=== PATIENT | female | born 1950 | race Caucasian/White ===

== ENCOUNTER → 2024-09-07 13:04 | Outpatient (REF) | payer OTHER, SELFPAY | LOC: WDC 13:04 | PROVIDERS: ATTENDING PHYSICIAN Internal Medicine; FAMILY PHYSICIAN Internal Medicine | DX: M81.0 Age-related osteoporosis without current pathological fracture (principal); Z12.31 Encounter for screening mammogram for malignant neoplasm of breast | CPT/HCPCS: 77063; 77067; 77080 ==

== ENCOUNTER 2024-10-28 15:13 | Observation (INO) | payer OTHER, SELFPAY ==
[2024-10-28] VITALS (11 sets, daily range): BP systolic 96–156; BP diastolic 49–80; BMI 27.2; BMI 27.0
--- NOTE | 2024-10-28 12:55 | EDRN ---
the pt was brought back from triage to ED BEd #11, a stroke alert was called and Dr. Nicholas and Dr. Schwarz were brought to the pts bedside
[2024-10-28 12:57] LABS: Glucose - Point of Care 101 mg/dl (70-99)
[2024-10-28 13:02] LABS: Glucose - Point of Care 94 mg/dl (70-99)
--- NOTE | 2024-10-28 13:04 | ED.GENMED ---
History of Present Illness
General
Chief Complaint: Change in Mental Status
Source: patient
Time Seen by Provider: 10/28/24 13:03
History of Present Illness
History of Present Illness:
74-year-old female presents to the emergency room complaining of confusion. Patient noted to be confused by her at around 9 AM. was asleep and the patient woke up so he cannot really identify a time when she was normal other than
last night. Evidently the patient's daughter spoke to her today and also felt like she was confused. Patient denies headache. She denies any nausea or vomiting.
Past History
Past History
ED Past Medical History: Other (Graves' disease)
ED Past Surgical History: Gynecological (Tubal ligation) and Other (Resection of lipoma, cosmetic surgery)
Social History
Tobacco: Non-smoker
Alcohol: Occasional
Drug: None
Phy Exam
Physical Exam
Physical Exam:
General: Awake, Alert, Oriented X3. No acute distress.
Vitals: unremarkable
Head: Atraumatic
Eyes: Pupils equal, EOMI
Throat: Airway intact, no exudates
Neck: Trachea midline
Lungs: Clear and equal b/l
Heart: Regular rate, no murmurs
Abd: Soft, Nontender, No pulsatile mass
Neuro: Cranial nerves intact, muscle strength equal bilaterally, cerebellar exam normal
Skin: Warm, dry, no rash
Extremities: pulses equal b/l, no edema
Course
Orders/Labs/Results
Orders:
Orders
10/28/24 12:32
Electrocardiogram (*1) Urgent
Reason for Study: Other
Other Reason for Exam: Possible Stroke
Bedside Glucose- Treatment ONCE
10/28/24 12:33
CT HEAD STROKE ALERT W/o Cont Urgent
Reason For Exam: confusion
EKG- Treatment ONCE
10/28/24 13:05
CT HEAD/NECK ANG STROKE ALERT Urgent
Comment:
Reason For Exam: Stenosis
10/28/24 13:17
C-Reactive Protein Urgent
Comment: ADD ON
Cardiovascular Evaluation Urgent
Complete Blood Count/With Diff Urgent
Comprehensive Metabolic Panel Urgent
Erythrocyte Sed Rate Urgent
Comment: ADD ON
Ferritin Urgent
Comment: ADD ON
Folate Urgent
Comment: ADD ON
Glycohemoglobin (HgbA1c) Urgent
PTT Urgent
Prothrombin Time Urgent
TSH Reflex To Free T4 Urgent
Comment: ADD ON
Troponin I Urgent
Vitamin B12 Urgent
Comment: ADD ON
10/28/24 13:20
Aspirin Low Dose EC [Aspir Low (Enteric Coated)] 81 mg PO NOW STA
10/28/24 13:21
Add On- LAB Routine
Comments:: Please add to today's labs or draw as routine
Tests Added?: TSH reflex, Ferritin, Folate, Vit. B12, ESR, CRP, lipid profile
10/28/24 13:23
Patient Education As Directed
Type: Stroke education packet
Comment: provide to patient and family
10/28/24 13:57
COVID-19 Antigen Urgent
Source: Nasal Swab
Urinalysis Reflex To Culture Urgent
Date Specimen was Collected: 10/28/24
Time Specimen was Collected: 13:22
Urine Microscopic Reflex Cult Urgent
Influenza A+B Rapid Molecular Urgent
KRISTIN Source: Nasal Swab
Specimen Description:
10/28/24 14:53
Admit/Transfer Patient As Directed
Co-Sign Provider:
Level of Care: Observation services
Assign to:: Telemetry
Physician / Group: scott
Diagnosis: tia
Reason for Telemetry: CVA/TIA
Date to Stop Telemetry: 10/31/24
Time to Stop Telemetry: 11:00
Code Status As Directed
Resuscitation Status: Do not resuscitate
Reached after discussion with pt or family/Healthcare POA: Yes
DNR Bracelet Application ONCE
PRN Pain Medication Management As Directed
May give lesser potent ordered pain med per pt: Yes
preference::
Protocol:: Medication orders for pain may be administered in a
manner that supports deferring to patient preference
when the pt is:
- Requesting an ordered lesser potent pain medication.
Least to most potent pain medications are defined
as: acetaminophen < NSAID < tramadol < opioids
(morphine, oxycodone, hydromorphone).
- Requesting a lesser dose of the same medication IF
ORDERED.
- Requesting a less intrusive route of administration
if both routes are prescribed by the provider (PO <
IV).
10/28/24 17:16
Activity As Directed
Activity Level: As Tolerated
NIH Stroke Scale As Directed
Directions: Per protocol
Comment: every shift and with any change in condition or mental status
Neurological Checks As Directed
Frequency: q4h
Additional Instructions:: q4h x 24h upon admission to the floor, then qshift & with any change in condition
and mental status
Pneumatic Compression Sleeves As Directed
Type: Knee high
Vital Signs As Directed
Frequency: Per unit guidelines
DX Deep Vein Thrombosis Video Routine
10/29/24 05:44
Cardiovascular Evaluation IN AM
10/29/24 08:00
Aspirin Low Dose EC [Aspir Low (Enteric Coated)] 81 mg PO DAILY
10/31/24 11:00
DC Protocol for Telemetry ONCE
Abnormal Lab Results
10/28/24 10/28/24 10/28/24
12:55 13:17 13:57
MCH 31.5 H pg
(27.0-31.0)
Total Cholesterol 309 H mg/dl
(50-199)
Folate > 20.0 H ng/ml
(2.76-20)
Leukocyte Esterase Rfl Trace A
(Negative)
POC Glucose 101 H mg/dl
(70-99)
10/28/24 13:17
10/28/24 13:17
Vital Signs
Initial and Last Documented VS:
Initial Vital Signs
Temp Pulse Resp BP Pulse Ox
97.6 F 68 18 134/73 99
10/28/24 12:46 10/28/24 12:46 10/28/24 12:46 10/28/24 12:46 10/28/24 12:46
Last Documented Vital Signs
Temp Pulse Resp BP Pulse Ox
98.8 F 72 18 138/77 98
10/29/24 16:31 10/29/24 16:31 10/29/24 16:31 10/29/24 16:31 10/29/24 16:31
MDM/Problems Addressed
Differential Diagnosis Includes:
CVA, electrolyte abnormality, urinary tract infection, other infectious process
MDM/Problems Addressed:
Patient presents primary with confusion. Neurologic exam reveals confusion but no focal neurologic deficits. CT and CTA are unremarkable. Urinalysis not consistent with UTI. Remainder of her labs do not show any clinically significant
abnormalities. However patient remains confused significantly so per family. Will require hospitalization for careful monitoring and further testing.
Chronic conditions affecting care: HTN
*Pulse Oximetry
Patient hypoxic: no
*EKG
Interpreted by ED Provider?: Yes
Heart Rate: 65
Rate: normal
Rhythm: sinus
[place]: normal axis
Interval: normal interval
Ischemia: no ischemia
*Scientist/Engineer Interpretation
Rate: normal
Interpretation: normal
Heart Rate: 65
Rhythm: sinus
*Critical Care Note
Total Time (30-74mins, 75-104mins- exclusive of procedures): Not Applicable
ED Attending Note
-
Portions of this chart may have been created with voice recognition software.� Occasional wrong word or��sound alike� substitutions may have occurred due to the inherent limitations of voice recognition software.
Discharge Plan
Departure
Patient Disposition: Admit
Date of Disposition: 10/28/24
Time of Disposition: 14:37
Admit to: Telemetry
Presentation/result/management discussed w/ accepting MD/DO: Hospitalist
Condition: Fair
Discharge Problem:
Altered mental status
Interventions
Interventions:
*Risk Screen - Suicide Last Done: 10/28/24 12:46
*General Assessment Last Done: 10/28/24 12:46
*Neglect/Abuse Screening Last Done: 10/28/24 12:54
ED- Fall Risk Assessment Last Done: 10/28/24 12:54
*ED COVID-19 Vaccine History Last Done: 10/28/24 12:46
*Nursing Disposition Last Done: 10/28/24 16:01
ED- Pulmonary Assessment Last Done: 10/28/24 12:54
ED-Psychological Assessment Last Done: 10/28/24 12:54
ED- Neurological Assessment Last Done: 10/28/24 12:54
ED- Cardiac Assessment Last Done: 10/28/24 12:54
ED Swallowing Screen Last Done: 10/28/24 12:54
Discharge Date and Time
Discharge Date/Time: 10/28/24 17:02
--- NOTE | 2024-10-28 13:09 | CON.NEURO ---
Neuro Assessment/Plan
Assessment
Acute onset of worsening cognition and subsequent left upper extremity sensory change followed by bilateral lower extremity tingling
Most likely subacute worsening of the patient's known dementia which was presumed to be due in part due to vitamin B12 deficiency. The patient's sensory changes which are not associated with motor changes, are most likely due to the patient's
generalized anxiety disorder.
The patient was not a candidate for either tenecteplase or intra-arterial thrombectomy due to NIH stroke scale less than [address] of head and CTA head and neck, done
Eventual outpatient MRI of brain
Check lipid profile
Goal of normotension
Initiate aspirin 81 mg daily based on current symptomatology
Check blood work for potential metabolic abnormalities
Provide medical educational materials
Will follow pending results
Consultation
Order
Date of Consultation: 10/28/24
Requesting Provider: Emergency department physician
Reason for Consult: Stroke alert
Subjective/Objective
Subjective Data
Date of Service: October 28, 2024
Right handed
Patient was previously evaluated by my former esteemed colleague, last in 2021. The patient was noncompliant with follow-up after that time. The patient reportedly has been experiencing cognitive impairment since 2020 involving short-term memory
but not long-term memory. The patient also was described as having increased anxiety and difficulty with sleep. According to medical records, the patient was previously evaluated for a spinal cord abnormality in 2008 and not found to have multiple
sclerosis. The patient had been falling immediately prior to evaluation in 2021. MRI of the brain was performed in 2021 which showed small vessel ischemic disease and no other changes. The patient did not undergo neuropsychological testing which
was recommended during that evaluation.
The patient returned to this hospital's emergency department today with report of increasing confusion and left arm sensory change.
At 0915 hrs. today, the patient had a discussion with family members about having a gathering later in the day. By 1030 hrs., the patient was unable to recall the prior phone discussion. Her left arm sensory change began at 1215 hrs. and has
persisted. The patient suggest that she has had a prior episode of confusion similar to this previously. The left arm sensory change has been followed by bilateral foot sensory change in the form of tingling which began during this interview.
No known modifying factors. No other associated symptoms.
Objective Data
Vital Signs
Temp Pulse Resp BP Pulse Ox
36.4 C 68 18 134/73 99
10/28/24 12:46 10/28/24 12:46 10/28/24 12:46 10/28/24 12:46 10/28/24 12:46
Patient Allergies
risedronate sodium [From Actonel] Allergy (Verified 10/28/24 12:51)
'flu symptoms'
Latex Allergy (Uncoded 10/28/24 12:51)
blisters
CVA Assessment
Onset of Stroke Symptoms
Onset of symptoms known: Yes
Date of onset of symptoms: 10/28/24
Time of onset of symptoms: 10:30
Time pt last seen normal is known: Yes
Date last time pt seen normal: 10/28/24
Time last time pt seen normal: 10:30
NIH Stroke Score
Level of Consciousness: 0 - Alert
LOC Questions: 0-Answers both correctly
LOC Commands: 0-Performs both correctly
Best Horizontal Gaze: 0-Normal
Visual Kunz: 0=Normal, no visual loss
Facial Palsy: 0=Normal, symmetrical
Motor - Right Arm: 0=No drift 10 seconds
Motor - Left Arm: 0=No drift 10 seconds
Motor - Right Le-No drift 5 seconds
Motor - Left Le-No drift 5 seconds
Limb Ataxia: 0-Absent
Sensation: 0-Normal
Best Language: 0-No aphasia
Dysarthria: 0-Normal
Extinction and Inattention: 0-No abnormality
Total Score:: 0
Tenecteplase Contraindications
Inclusion and Exclusion criteria reviewed: Yes
IAT Contraindications: NIHSS < 6
Review of Systems
-
Unable to obtain full review of systems at this time due to: Dementia
History Source: Patient
All other systems: Reviewed and negative
EENT: Negative Decreased Vision
Neuro: Negative Dizzy or Headache
Physical Exam
-
General: No Apparent Distress and Appears Stated Age
Eyes: OU Absent Papilledema, Round OU, [place] Conjunctivae and No Ptosis
HEENT: Anicteric and Moist Mucous Membranes
Neck: Full Range of Motion
Respiratory: No Dyspnea
Cardiac: No JVD
GI: Non-distended
Skin: Unremarkable
Extremities: No Clubbing, No Cyanosis and No Edema
Psych: Negative Intact Judgement/Insight
Extended Neurological Exam
Mood & Affect: Mood Unremarkable and Affect Unremarkable
Attention Span & Concentration: Awake, Alert, Interactive and Mild Difficulty with 2 Step Request
Memory: Able to Recall (Month and year as well as holiday order) and Unable to Recall Personal History
Tremor: Hand Tremor Absent and Head Tremor Absent
Speech: Quality Unremarkable and Quantity Unremarkable
Cranial Nerve II: Left Eye: Pupillary Reactivity Unremarkable, Pupillary Size Unremarkable and Visual Kunz Intact
Cranial Nerve II: Right Eye: Pupillary Reactivity Unremarkable, Pupillary Size Unremarkable and Visual Kunz Intact
Cranial Nerves III, IV, : Extraocular Movement: Extraocular Movement Full in all Directions
Cranial Nerve VII: Facial Symmetry: Normal Facial Symmetry
Cranial Nerve VIII: Hearing: Unremarkable Hearing to Normal Conversational Volume
Cranial Nerves IX, X: Palate Movement: Palate Elevation Symmetric
Cranial Nerve XI: Shoulder Shrug: Unremarkable
Cranial Nerve XII: Tongue Protusion: Midline
Muscle Strength, Overall: Full Throughout
Muscle Bulk & Tone: Bulk Unremarkable and Tone Unremarkable
Pronator Drift: No Drift in Upper Extremities and No Drift in Lower Extremities
Deep Tendon Reflexes: Unremarkable Throughout
Touch Sensation: Unremarkable
Coordination: [id number] Testing Unremarkable
Babinski Sign: Absent Bilaterally
Gait & Station: Up from Seated Without Problem
Data Reviewed
-
CT-A: Report Reviewed and Image Reviewed
CT Head: Report Reviewed and Image Reviewed
MRI Head: Ordered
Labs: Ordered and Report Reviewed
Reviewed with: Physician, Nurse, Patient and Family
Old Records: Summarized
Medications
-
Home Medications
�Medication �Instructions �Recorded
levothyroxine 88 mcg tablet 88 mcg PO DAILY Thyroid 12/24/16
Fancy Pants Gummy Vitamin 4 ea PO DAILY 02/17/22
Vitamin A 1 tab PO DAILY 02/17/22
acetaminophen 325 mg tablet 650 mg (2 x 325 mg) PO Q4HPRN PRN 02/17/22
mild pain #1 tab
bupropion HCl 150 mg 24 hr tablet, 150 mg PO DAILY Depression 02/17/22
extended release
cholecalciferol (vitamin D3) 50 5,000 units PO DAILY 02/17/22
mcg (2,000 unit) tablet
ibuprofen 200 mg tablet 400 - 600 mg (2 - 3 x 200 mg) PO 02/17/22
Q6HPRN PRN moderate pain #1 tab
oxycodone 5 mg tablet 5 mg PO Q4HPRN PRN 02/17/22
breakthrough/severe pain #10 tabs
vitamin B complex 1 tab PO DAILY 02/17/22
Past History
Past History
ED Past Medical History: Hypothyroidism and Other (Graves' disease, dementia, B12 deficiency, osteoporosis, bilateral ptosis)
ED Past Surgical History: Gynecological (Tubal ligation), Orthopedic (L metatarsal fracture) and Other (Resection of lipoma, cosmetic surgery, carpal tunnel surgery)
Social History
Tobacco: Non-smoker
Alcohol: Occasional
Drug: None
Personal:
Living: with family
Family History
Family History: Other (reviewed and non-contributory)
[2024-10-28 13:27] LABS: % Basophils 0.6 % (0-2); % Eosinophils 2.7 % (0-6); % Immature Granulocytes 0.3 % (0-0.5); % Lymphocytes 27.8 % (20.5-51.1); % Monocytes 6.7 % (1.7-9.3); % Neutrophils 61.9 % (42.2-75.2); Absolute Eosinophils 0.2 10^3/uL (0-0.7); Absolute Lymphocytes 1.8 10^3/uL (1.2-3.4); Absolute Monocytes 0.4 10^3/uL (0.1-0.6); Absolute Neutrophils 3.9 10^3/uL (1.4-6.5); Hemoglobin 14.8 g/dL (12.0-16.0); Mean Corp Hgb Conc. 33.6 g/dL (33.0-37.0); Mean Corpuscular Hgb 31.5 pg (27.0-31.0); Mean Corpuscular Volume 93.6 fL (81.0-99.0); Nucleated Red Blood Cells % 0 %; Platelet Count 217 10^3/uL (130-400); Red Cell Dist. Width 14.1 % (11.5-14.5); White Blood Cell Count 6.3 10^3/uL (4.8-10.8)
[2024-10-28 13:41] LABS: ALT (SGPT) 33 U/L (0-35); AST (SGOT) 35 U/L (14-36); Albumin 4.9 g/dl (3.5-5.0); Alkaline Phosphatase 77 U/L (38-126); Blood Urea Nitrogen 15 mg/dl (7-17); Calcium 9.4 mg/dl (8.4-10.2); Carbon Dioxide 28 mmol/L (22-30); Chloride 102 mmol/L (98-107); Estimated Creatinine Clearance 63 ml/min; Glucose 97 mg/dl (70-99); Potassium 4.5 mmol/L (3.5-5.1); Sodium 138 mmol/L (135-145); Total Bilirubin 0.6 mg/dl (0.2-1.3); Total Cholesterol 309 mg/dl (50-199); Total Protein 7.3 g/dl (6.3-8.2); Triglyceride 81 mg/dl (10-149); Very Low Density Lipoprotein 16 mg/dl (0-30); eGFR > 60.00
[2024-10-28 13:48] LABS: HDL Cholesterol 131 mg/dl; LDL Cholesterol, Calculated 162 mg/dl
[2024-10-28 13:51] LABS: Troponin I < 0.012 ng/ml
[2024-10-28 13:55] LABS: C-Reactive Protein < 5.00 mg/L (0.0-10.00)
[2024-10-28 14:09] LABS: APTT 27.4 Sec (23.4-35.0); INR 0.84
[2024-10-28 14:18] LABS: Urine Albumin Negative (Neg - Trace); Urine Bilirubin Negative (Negative); Urine Character Clear (Clear); Urine Color Yellow; Urine Glucose Negative (Negative); Urine Ketone Negative (Negative); Urine Leukocyte Trace (Negative); Urine Nitrite Negative (Negative); Urine Occult Blood Negative (Negative); Urine Specific Gravity 1.005 (<1.030); Urine Urobilinogen Negative (Neg - 1+)
[2024-10-28 14:24] LABS: TSH Reflex To Free T4 3.94 uIU/ml (0.47-4.68)
[2024-10-28 14:24] LABS: COVID-19 Antigen Negative (Negative)
[2024-10-28 14:25] LABS: Erythrocyte Sed Rate 9 mm/hour (0-20)
[2024-10-28] MEDS: ASPIR LOW (ENTERIC COATED) 81 MG PO (14:26)
[2024-10-28 14:28] LABS: Ferritin 47.9 ng/ml (11.1-264.0)
[2024-10-28 14:39] LABS: Urine Red Blood Cell 0-2 /HPF (0-2); Urine Squamous Cell 0-2 /LPF (Few)
[2024-10-28 14:43] LABS: Vitamin B12 919 pg/ml (239-931)
--- NOTE | 2024-10-28 14:47 | EDRN ---
hospitalist currently at the pts bedside, aspiring administered and the pt was able to take aspirin with no issues
--- NOTE | 2024-10-28 14:58 | HPS.HSE ---
Family Physician
-
Family Physician: Malathi Arevalo
Chief Complaint
-
confusion
History of Present Illness
75-year-old female past medical history of Graves' disease status post thyroid resection, hyperlipidemia, B12 deficiency, osteoporosis, presenting with confusion. She was noted to be confused by her around 9 AM. She was forgetting a
conversation she had an hour prior to getting details about her life. No slurred speech, swallowing difficulty, headache, blurry vision, gait dysfunction. No focal weakness, vertigo or dizziness. No nausea or vomiting. Patient did complain of
left upper extremity tingling which she continues to have. was asleep and the patient woke up so he cannot identify when she was last known normal other than last night.
At this time confusion has improved although she still not back to normal.
No fevers or chills, upper respiratory symptoms, nausea vomiting or urinary symptoms or diarrhea or abdominal pain.
Patient had similar episode 2 years ago and was found to have low B12 2 years ago was recommended to start B12 supplement but she is not compliant with this.
Patient did not start any new sedating medications or pain medicine or medicines for insomnia.
Patient's mother had a stroke.
She drinks alcohol occasionally. Denies smoking.
Medical History
Past Medical History
Past Medical History: Reports Other (Graves' disease status post thyroid resection, hyperlipidemia, B12 deficiency, osteoporosis,)
Past Surgical History: Reports Other ( Gynecological (Tubal ligation), Orthopedic (L metatarsal fracture) and Other (Resection of lipoma, cosmetic surgery, carpal tunnel surgery))
Social History
Tobacco: Non-smoker
Alcohol: None
Drug: None
Family History
Family History: Not pertinent
Allergies / Home Medications
Allergies reflects when Allergies were last updated in [facility].
Home Medications with original date entered in [facility]
Allergy/Medication List:
Allergies
Allergy/AdvReac Type Severity Reaction Status Date / Time
risedronate sodium Allergy 'flu Verified 12/29/24 12:51
[From Actonel] symptoms'
Latex Allergy blisters Uncoded 10/28/24 12:51
Home Medications
levothyroxine 88 mcg tablet 88 mcg PO DAILY Thyroid 12/24/16
Fancy Pants Gummy Vitamin 4 ea PO DAILY 02/17/22
Vitamin A 1 tab PO DAILY 02/17/22
acetaminophen 325 mg tablet 650 mg (2 x 325 mg) PO Q4HPRN PRN mild pain #1 tab 02/17/22
bupropion HCl 150 mg 24 hr tablet, extended release 150 mg PO DAILY Depression 02/17/22
cholecalciferol (vitamin D3) 50 mcg (2,000 unit) tablet 5,000 units PO DAILY 02/17/22
ibuprofen 200 mg tablet 400 - 600 mg (2 - 3 x 200 mg) PO Q6HPRN PRN moderate pain #1 tab 02/17/22
oxycodone 5 mg tablet 5 mg PO Q4HPRN PRN breakthrough/severe pain #10 tabs 02/17/22
vitamin B complex 1 tab PO DAILY 02/17/22
Review of Systems
-
History Source: Patient
A 12 point ROS was completed and negative except as noted: Yes
Constitutional: Reports No Symptoms
EENT: Reports No Symptoms
Respiratory: Reports No Symptoms
Cardiac: Reports No Symptoms
Abdomen/GI: Reports No Symptoms
: Reports No Symptoms
Musculoskeletal: Reports No Symptoms
Skin: Reports No Symptoms
Neurological: Reports See HPI
Endocrine: Reports No Symptoms
Hematologic/Lymphatic: Reports No Symptoms
Psych: Reports No Symptoms
Physical Exam
Vital Signs
Vital Signs
Temp Pulse Resp BP Pulse Ox
98.5 F 73 14 144/77 98
10/28/24 12:54 10/28/24 13:15 10/28/24 13:15 10/28/24 13:06 10/28/24 13:15
Physical Exam
General: Well Developed, Well Nourished and No Apparent Distress
HEENT: NormoCephalic, Moist mucous membranes and Atraumatic
Respiratory: Clear
Cardiac: S1/S2 and Regular Rhythm; No Murmur or Rub
GI: Soft, Non Tender, Non Distended and Normal Bowel Sounds; No Organomegaly
Rectal: Deferred by Provider
Musculoskeletal: No Clubbing, No Cyanosis and No Edema
Skin: No Rash
Neuro: Nonfocal/grossly intact
Laboratory Results
-
10/28/24 13:17
10/28/24 13:17
Laboratory Results
PT 12.0 Sec (11.4-14.6) 10/28/24 13:17
INR 0.84 10/28/24 13:17
APTT 27.4 Sec (23.4-35.0) 10/28/24 13:17
Total Bilirubin 0.6 mg/dl (0.2-1.3) 10/28/24 13:17
AST 35 U/L (14-36) 10/28/24 13:17
ALT 33 U/L (0-35) 10/28/24 13:17
Alkaline Phosphatase 77 U/L (38-126) 10/28/24 13:17
Troponin I < 0.012 ng/ml 10/28/24 13:17
Data Reviewed
-
Lab Data: Labs Reviewed by me
Old Records: Reviewed
Impression/Plan
-
IMPRESSION:
PLAN:
# Altered mental status/left upper arm tingling likely TIA/small CVA
-Neurological examination unremarkable
-CT head shows no acute abnormality
-CTA head and neck no significant abnormality so TNK held off
-TSH within normal range
-Aspirin given
-COVID and flu negative
-Urinalysis unremarkable
-Check MRI brain
-Check A1c
-Neurology following
Graves' disease status post thyroid resection now with hypothyroidism
-Continue levothyroxine
Hyperlipidemia
-Total cholesterol 309
B12 deficiency in the past
-B12 level 900
Osteoporosis
Anxiety/depression
DNR/DNI
DVT prophylaxis�SCDs
Regular diet
--- NOTE | 2024-10-28 16:00 | EDRN ---
this RN called the receiving unit and notified them that paper report was going to be tubed up, this RN notified the floor that the pts NIH is 0
[2024-10-28 16:10] LABS: Folate > 20.0 ng/ml (2.76-20)
--- NOTE | 2024-10-28 18:05 | PTCARENOTE ---
pt admitted from ed. pt aaox3. states no pain or sob. able to ambulate from stretcher to bed self. nihss 1 left forearm hand decreased sensation and tingling. pt states this has happened before but it is more prominent now.
--- NOTE | 2024-10-29 00:46 | PTCARENOTE ---
ax3- nih 1 for decreased sensation in left hand. sinus bp wnl afebrile room air. ambulates without difficulty
[2024-10-29 03:08] VITALS: BP 111/63
--- NOTE | 2024-10-29 04:05 | PTCARENOTE ---
remains ax3- [facility] unchanged- vitals wnl- plan of care reviewed-
[2024-10-29 06:50] LABS: HDL Cholesterol 107 mg/dl; LDL Cholesterol, Calculated 151 mg/dl; Total Cholesterol 268 mg/dl (50-199); Triglyceride 54 mg/dl (10-149); Very Low Density Lipoprotein 10 mg/dl (0-30)
[2024-10-29 07:58] VITALS: BP 112/66
--- NOTE | 2024-10-29 08:26 | W.PN.HOSP.TC ---
Today's Communication/Plan
-
MRI of the brain. EEG
Assessment / Plan
Assessment / Plan
Physical exam:
General: Well Developed, Well Nourished and No Apparent Distress
HEENT: Normocephalic, Atraumatic and Moist Mucous Membranes
Respiratory: Clear to Auscultation; Negative Wheezes, Rales or Rhonchi
Cardiac: Regular Rhythm and S1/S2
GI: Soft, Nontender and Nondistended
Musculoskeletal: No Clubbing, No Cyanosis and No Edema
Neuro: Awake, Alert and Oriented, no gross neurological deficits appreciated
Psych: Calm
A/P:
Likely transient global amnesia versus transient ischemic attack (most likely the former):
Plan for MRI of the brain today
Plan for EEG
CT of the head and head and neck CTA unremarkable
Started her on aspirin 81 mg daily
Start her on Lipitor 40 mg daily today
Neurology consult appreciated
PT OT eval
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
OMT attempted and unsuccessful
Continue follow-up as outpatient
B12 and folate normal
Hypothyroidism:
Continue levothyroxine 75 mcg p.o. daily
DVT prophylaxis:
Start Lovenox SQ
CODE STATUS:
DNR
Anticipated Discharge: Within 24 hours
Subjective/Interval History
-
Date of Service: October 29, 2024
Seen by the time she is getting ready for EEG. She feels back to her normal. Unable to recall events from yesterday but intact memory from day before and on. No chest pain or shortness of breath. Still some paresthesias in her left upper
extremity.
Objective Data
-
Vital Signs:
Vital Signs
Temp Pulse Resp BP Pulse Ox
98.0 F 63 18 112/66 96
10/29/24 07:58 10/29/24 07:58 10/29/24 07:58 10/29/24 07:58 10/29/24 07:58
I&O
10/28/24 10/29/24 10/30/24
06:59 06:59 06:59
Intake Total 440 / 440
Balance 440 / 440
[2024-10-29] MEDS: ASPIR LOW (ENTERIC COATED) 81 MG PO (08:38)
[2024-10-29] MEDS: SYNTHROID 75 MCG PO (08:38)
[2024-10-29] MEDS: VITAMIN D3 (cholecalciferol) 25 MCG PO (08:38)
[2024-10-29 09:11] LABS: Glycohemoglobin (HgbA1c) 5.4 % (4.0-5.6)
--- NOTE | 2024-10-29 09:31 | CON.NEURO ---
Consultation
Order
Date of Consultation: 10/29/24
Requesting Provider:
Reason for Consult:
Subjective/Objective
Subjective Data
entered in error
Medications
-
Active Medications
Generic Name Dose Route Start Last Admin
Trade Name Freq PRN Reason Stop Dose Admin
Aspirin 81 mg 10/29/24 08:00 10/29/24 08:38
Aspirin 81 Mg (Enteric Coated) Tablet PO 11/26/24 07:59 81 mg
DAILY ABILIO Administration
Cholecalciferol 25 mcg 10/29/24 08:00 10/29/24 08:38
Cholecalciferol (Vitamin D3) 25 Mcg Tablet (1,000 Units) PO 11/26/24 07:59 25 mcg
DAILY ABILIO Administration
Levothyroxine Sodium 75 mcg 10/29/24 08:00 10/29/24 08:38
Levothyroxine 75 Mcg Tablet PO 11/26/24 07:59 75 mcg
DAILY ABILIO Administration
Non-Formulary Medication 2,400 mcg 10/29/24 08:00
Vitamin A PO 11/26/24 07:59
DAILY ABILIO
Home Medications
�Medication �Instructions �Recorded
cholecalciferol (vitamin D3) 25 25 mcg PO DAILY 10/28/24
mcg (1,000 unit) tablet (Vitamin
D3)
levothyroxine 75 mcg tablet 75 mcg PO DAILY 10/28/24
naproxen sodium 220 mg tablet 220 mg PO BIDPRN PRN MILD PAIN 10/28/24
vitamin A 2,400 mcg capsule 2,400 mcg PO DAILY 10/28/24
--- NOTE | 2024-10-29 09:33 | W.PN.NEURO.1 ---
Today's Communication / Plan
-
check brain MRI and EEG
agree ASA 81, will start Lipitor 40
Neuro Assessment/Plan
Assessment
HDL 131, LDL 162
CTA head/neck imgs rev'd, no LVO, no hemodynamically significant stenosis
Today the description sounds like transient global amnesia, fully resolved
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 OMT attempted, unsuccessful
Plan
check brain MRI and EEG
agree ASA 81, will start Lipitor 40
discussed with patient and her sister TGA, theorized to be sometimes a seizure or TIA, or its own entity; workup often involves MRI, EEG but they are generally unremarkable. Rarely recurs.
Subjective/Objective
Subjective Data
Date of Service: October 29, 2024
Today patient reports feeling back to baseline. She has a gap in her memory and is unable to remember any events from yesterday such as making coffee, walking the dog, or being in triage. Memory of the day before yesterday, and new memory are
preserved
She reports that the left arm tingling has been chronic
Objective Data
Vital Signs
Temp Pulse Resp BP Pulse Ox
36.7 C 63 18 112/66 96
10/29/24 07:58 10/29/24 07:58 10/29/24 07:58 10/29/24 07:58 10/29/24 07:58
Lab Results
10/28/24 13:17
10/28/24 13:17
PT 12.0 Sec (11.4-14.6) 10/28/24 13:17
INR 0.84 10/28/24 13:17
APTT 27.4 Sec (23.4-35.0) 10/28/24 13:17
Sodium 138 mmol/L (135-145) 10/28/24 13:17
Potassium 4.5 mmol/L (3.5-5.1) 10/28/24 13:17
BUN 15 mg/dl (7-17) 10/28/24 13:17
Glucose 97 mg/dl (70-99) 10/28/24 13:17
Calcium 9.4 mg/dl (8.4-10.2) 10/28/24 13:17
LDL Cholesterol, Calc 151 mg/dl 10/29/24 05:44
Vitamin B12 919 pg/ml (239-931) 10/28/24 13:17
Patient Allergies
risedronate sodium [From Actonel] Allergy (Verified 10/28/24 12:51)
'flu symptoms'
Latex Allergy (Uncoded 10/28/24 12:51)
blisters
Physical Exam
-
AAOx3, speech clear, language intact, pleasant and cooperative
VFF, EOMI, face symmetric
full strength b/l UE/LE, no pronator drift
sensation intact to pin
Earlene's and Tinoco's signs positive
palpated left first rib subluxation
Data Reviewed
-
CT-A: Report Reviewed and Image Reviewed
--- NOTE | 2024-10-29 11:30 | EEG.RPT ---
Electroencephalogram Report
Recording
Date of EE10/29/24
Type of EEG: Routine
Length of EEG recordin minutes
Done with Video Recording: Yes
Patient Status: Inpatient
Recording Conditions: Awake and Drowsy
Hyperventilation Performed: No
Photic Stimulation Performed: Yes
Report
LESS THAN 1 HOUR EEG INTERPRETATION:
Unremarkable EEG for age
CLINICAL CORRELATION:
A normal EEG does not rule out a diagnosis of epilepsy. If clinical suspicion for seizure persists, a prolonged recording may be warranted.
Clinical correlation is advised.
METHODS:
A 21 channel digitized electroencephalogram (EEG) was performed using the 10/20 international system of electrode placement and one-lead of ECG recorded. The [employer] quantitative EEG system was utilized.
ELECTROENCEPHALOGRAPHER IMPRESSION(S):
Quality of study
Good
Background
There was an unremarkable anterior-posterior voltage gradient of alpha frequency.
With eye opening the background activity changed to a low voltage mixture of frequencies.
There were no significant asymmetries of background activity noted.
Sleep
Drowsiness present
Photic Stimulation
Symmetric activation at some intermediate flash frequencies
ECG
Normal sinus rhythm
--- NOTE | 2024-10-29 12:43 | CM ---
Addendum entered by Nan Walter 10/29/24 15:27:
Reviewed PT's note. PT signed off, patient has no needs.
Addendum entered by Nan Walter 10/29/24 12:46:
CM noted, no order for PT/OT so far.
Original Note:
Chart reviewed. Reviewed neurology's note. Patient is here for TIA. She had 3 family members or friends at bedside. Medicare and commercial URI[employer] forms were explained to patient. She verbalized understanding and signed. Copy given to patient.
Original placed on patient's clip board in [facility]. One of patient's visitors also stated that she explained what observation status is to Kenzie.She lives in [place] home with no GLADIS with her and 2 dogs. She is retired. No +SDOHs. She drives.
She owns no DME. She has an active PCP and pharmacy.
ANTICIPATED DISCHARGE PLAN: Discharge to home with , when medically cleared.
[2024-10-29 12:55] VITALS: BP 112/70
[2024-10-29 15:04] VITALS: BP 113/71; PULSE 70; O2SAT 97
--- NOTE | 2024-10-29 15:09 | PTOTSP ---
Patient independent with all bed mobility, transfers and ambulation. No skilled PT needs, will sign off.
--- NOTE | 2024-10-29 15:43 | W.DCSUMMARY ---
Discharge Summary
Discharge Data
Date of Admission: 10/28/24
Date of Discharge: 10/29/24
-
Pending Results: No
Hospital Course
Patient 74 years old female came into the hospital with acute episode of confusion. Neurology consulted. Her symptomatology was consistent with TGA. Workup including CT of the head and CTA of the head and neck unremarkable, also she had MRI of
the brain unremarkable. She also had an EEG with no evidence of seizures. Patient was recommended aspirin and statin by neurology. Otherwise, patient is doing well clinically and returned back to her baseline. She is eager to go home today. I
touched base with neurology and he cleared her for discharge. She will be discharged in stable condition today.
Discharge Plan
-
Patient Disposition: Home (Routine Discharge)
Discharge Diagnosis/Procedures: Transient global amnesia. Dyslipidemia.
Diet: Low Cholesterol
Activity: As tolerated
Blood Work: Please PCP to order CBC, BMP within 1 week
Referrals:
Olu Nicholas MD [Active] - in four to six weeks
Malathi Arevalo MD [Family Provider] - in less than 1 week
Prescriptions:
New
atorvastatin 40 mg Tablet
40 mg PO QPM Qty: 30 0RF
aspirin 81 mg Tablet,Delayed Release (Dr/Ec)
81 mg PO DAILY Qty: 30 0RF
Continued
vitamin A 2,400 mcg Capsule
2,400 mcg PO DAILY
levothyroxine 75 mcg Tablet
75 mcg PO DAILY
cholecalciferol (vitamin D3) [Vitamin D3] 25 mcg (1,000 unit) Tablet
25 mcg PO DAILY
Discontinued
naproxen sodium 220 mg Tablet
220 mg PO BIDPRN PRN (Reason: MILD PAIN)
Discharge Orders:
Discharge Patient (As Directed); Ordered 10/29/24
Ordered By: Salomon Izaguirre
Discharge Date and Time
Discharge Date/Time: 10/29/24 17:17
Print Language: PALAUAN
[2024-10-29 16:31] VITALS: BP 138/77
== END 2024-10-29 17:17 | disposition home or self-care (01) ==
LOC: 1 ACUTE 15:13
PROVIDERS: Emergency Medicine; ADMITTING PHYSICIAN Hospitalist; ATTENDING PHYSICIAN Hospitalist; CONSULT PHYSICIAN Psychiatry & Neurology Neurology; EMERGENCY PHYSICIAN Emergency Medicine; FAMILY PHYSICIAN Internal Medicine
DX: G45.4 Transient global amnesia (principal); F41.1 Generalized anxiety disorder; E03.9 Hypothyroidism, unspecified; E53.8 Deficiency of other specified B group vitamins; F03.93 Unspecified dementia, unspecified severity, with mood disturbance; F03.94 Unspecified dementia, unspecified severity, with anxiety; M81.0 Age-related osteoporosis without current pathological fracture; E78.5 Hyperlipidemia, unspecified; F32.A Depression, unspecified; I10 Essential (primary) hypertension; Z11.52 Encounter for screening for COVID-19; Z66 Do not resuscitate
CPT/HCPCS: 70450; 70496; 70498; 70551; 80053; 80061; 81003; 81015; 82607; 82728; 82746; 82962; 83036; 84443; 84484; 85025; 85610; 85652; 85730; 86140; 87502; 87811; 93005; 95816; 97116; 97161; 99285; G0378; Q9967

== ENCOUNTER → 2025-01-11 12:32 | Outpatient (REF) | payer OTHER, SELFPAY | LOC: HWRAD 12:32 | PROVIDERS: ATTENDING PHYSICIAN Internal Medicine | DX: Z87.891 Personal history of nicotine dependence (principal) | CPT/HCPCS: 71271 ==